=== PATIENT | male | born 1965 | race Caucasian/White ===

== ENCOUNTER 2017-01-04 23:21 | Emergency (ER) | payer MEDICARE ==
[2017-01-05 00:05] LABS: BASOPHIL 0.2 % (0-2); EOSINOPHIL 0.6 % (0-5); HCT 40.3 % (42.0-52.0); LYMPHOCYTE 37.4 % (15-48); MCH 31.5 pg (25.0-31.0); MCHC 34.7 g/dL (32.0-36.0); MCV 90.8 fL (78.0-100.0); MONOCYTE 9.6 % (0-12); MPV 8.1 fL (6.0-9.5); NEUTROPHIL 52.2 % (41-80); PLT 331 K/uL (150-400); RBC 4.44 M/uL (4.70-6.00); RDW 13.2 % (11.5-14.0)
[2017-01-05 00:34] LABS: LACTIC ACID 2.2 mmol/L (0.5-2.2)
[2017-01-05 00:39] LABS: ALBUMIN 4.1 g/dL (3.5-5.0); CREATININE 0.8 mg/dL (0.7-1.2); GLOBULIN (CALCULATION) 3.3 g/dL (2.2-4.2); POTASSIUM 3.4 mmol/L (3.5-5.1); TOTAL PROTEIN 7.4 g/dL (6.4-8.3)
[2017-01-05 00:40] LABS: BILIRUBIN NEGATIVE (NEGATIVE); BLOOD 2+ Ery/uL (NEGATIVE); CLARITY CLEAR (CLEAR); COLOR YELLOW (YELLOW); GLUCOSE (U) NORMAL (NORMAL); KETONE (U) 1+ (SMALL) mg/dL (NEGATIVE); LEUKOCYTES 3+ Leu/uL (NEGATIVE); NITRITE POSITIVE (NEGATIVE); PROTEIN NEGATIVE (NEGATIVE)
[2017-01-05 00:40] LABS: BILIRUBIN - TOTAL 0.3 mg/dL (0.1-1.0)
[2017-01-05 00:53] LABS: URINARY WBC 20-50
[2017-01-05 00:55] LABS: BACTERIA TRACE; SQUAMOUS EPITHELIAL CELLS RARE
== END 2017-01-05 03:28 | disposition home or self-care (01) ==
LOC: FER 23:21
PROVIDERS: Emergency Medicine Emergency Medical Services
DX: N30.00 Acute cystitis without hematuria (principal); K62.89 Other specified diseases of anus and rectum; K59.00 Constipation, unspecified; E86.0 Dehydration; F17.210 Nicotine dependence, cigarettes, uncomplicated; Z88.0 Allergy status to penicillin; Z98.890 Other specified postprocedural states
CPT/HCPCS: 36415; 80053; 81001; 83605; 85025; 87077; 87088; 87186; 87804; 87899; J1170; J1980; J2405; Q9967

== ENCOUNTER 2017-02-24 21:25 | Emergency (ER) | payer MEDICARE | END 2017-02-24 23:29 | disposition home or self-care (01) | LOC: FER 21:25 | DX: S20.212A Contusion of left front wall of thorax, initial encounter (principal); J44.9 Chronic obstructive pulmonary disease, unspecified; F17.210 Nicotine dependence, cigarettes, uncomplicated; Z85.048 Personal history of other malignant neoplasm of rectum, rectosigmoid junction, and anus; Z88.0 Allergy status to penicillin; Z98.890 Other specified postprocedural states; W51.XXXA Accidental striking against or bumped into by another person, initial encounter; Y92.009 Unspecified place in unspecified non-institutional (private) residence as the place of occurrence of the external cause | CPT/HCPCS: 71020; J1170 ==

== ENCOUNTER 2017-04-08 18:58 | Emergency (ER) | payer MEDICARE | END 2017-04-08 20:35 | disposition home or self-care (01) | LOC: FER 18:58 | DX: K62.89 Other specified diseases of anus and rectum (principal); F17.200 Nicotine dependence, unspecified, uncomplicated; Z88.0 Allergy status to penicillin; Z98.890 Other specified postprocedural states | CPT/HCPCS: J1170 ==

== ENCOUNTER 2021-01-21 14:20 | Emergency (ER) | payer MEDICARE ==
[~2021-01-21 14:20] MED LIST: FOLIC ACID1 MG PO; OXYCONTIN15 MG PO
[2021-01-21 15:15] LABS: BASOPHIL 0.4 % (0-2); EOSINOPHIL 0.5 % (0-5); HCT 42.8 % (42.0-52.0); HGB 14.8 g/dl (13.2-18.0); LYMPHOCYTE 20.7 % (15-48); MCH 32.5 pg (25.0-31.0); MCHC 34.6 g/dL (32.0-36.0); MCV 93.9 fL (78.0-100.0); MONOCYTE 8.9 % (0-12); MPV 8.5 fL (6.0-9.5); NEUTROPHIL 68.6 % (41-80); NRBC 0; PLT 279 K/uL (150-400); RBC 4.56 M/uL (4.70-6.00); RDW 13.2 % (11.5-14.0); WBC 7.9 K/uL (4.0-10.5)
[2021-01-21 15:27] LABS: ALBUMIN 3.3 g/dL (3.4-5.0); BILIRUBIN - TOTAL 0.9 mg/dL (0.2-1.0); CREATININE 0.74 mg/dL (0.67-1.17); GLOBULIN (CALCULATION) 4.1 g/dL; POTASSIUM 3.6 mmol/L (3.5-5.1); TOTAL PROTEIN 7.4 g/dL (6.4-8.2)
[2021-01-21] MEDS ORDERED: DICLOFENAC SODI75 MG PO (15:51)
== END 2021-01-21 16:30 | disposition home or self-care (01) ==
LOC: FER 14:20
PROVIDERS: Emergency Medicine
DX: M54.5 Low back pain (principal); K62.89 Other specified diseases of anus and rectum; F17.210 Nicotine dependence, cigarettes, uncomplicated; Z85.038 Personal history of other malignant neoplasm of large intestine; Z90.49 Acquired absence of other specified parts of digestive tract; Z88.0 Allergy status to penicillin
CPT/HCPCS: 36415; 80053; 85025; J1170; J1885; J2405; J2930

== ENCOUNTER 2021-01-23 15:13 | Emergency (ER) | payer MEDICARE ==
[~2021-01-23 15:13] MED LIST changes: +DICLOFENAC SODI75 MG PO
== END 2021-01-23 21:47 | disposition home or self-care (01) ==
LOC: FER 15:13
DX: M46.28 Osteomyelitis of vertebra, sacral and sacrococcygeal region (principal); F17.210 Nicotine dependence, cigarettes, uncomplicated; Z88.0 Allergy status to penicillin
CPT/HCPCS: 72131; 72192; J1100; J1170; J1885; J2405

== ENCOUNTER 2021-01-24 21:11 | Day surgery (SDCO) | payer MEDICARE ==
[2021-01-24 22:02] LABS: BASOPHIL 1.5 % (0-2); EOSINOPHIL 0 % (0-5); HCT 43.2 % (42.0-52.0); HGB 14.9 g/dl (13.2-18.0); LYMPHOCYTE 15.6 % (15-48); MCH 31.9 pg (25.0-31.0); MCHC 34.5 g/dL (32.0-36.0); MCV 92.5 fL (78.0-100.0); MONOCYTE 11.7 % (0-12); NEUTROPHIL 70.9 % (41-80); NRBC 0; PLT 253 K/uL (150-400); RBC 4.67 M/uL (4.70-6.00); RDW 13.4 % (11.5-14.0)
[2021-01-24 22:10] LABS: WBC 3.3 K/uL (4.0-10.5)
[2021-01-24 22:14] LABS: ALBUMIN 2.2 g/dL (3.4-5.0); BILIRUBIN - TOTAL 1.8 mg/dL (0.2-1.0); BUN/CREAT RATIO (CALC) 40.8 RATIO; CREATININE 0.98 mg/dL (0.67-1.17); GLOBULIN (CALCULATION) 4.5 g/dL; POTASSIUM 3.8 mmol/L (3.5-5.1); TOTAL PROTEIN 6.7 g/dL (6.4-8.2)
[2021-01-25] MEDS ORDERED: GABAPENTIN800 MG PO (00:39)
[2021-01-25] MEDS ORDERED: VICODIN 10/3251 EACH PO (00:40)
[2021-01-25 04:54] LABS: BILIRUBIN NEGATIVE (NEGATIVE); BLOOD 2+ Ery/uL (NEGATIVE); CLARITY CLEAR (CLEAR); COLOR YELLOW (YELLOW); GLUCOSE (U) NORMAL (NORMAL); LEUKOCYTES NEGATIVE Leu/uL (NEGATIVE); NITRITE POSITIVE (NEGATIVE); PROTEIN 1+ mg/dL (NEGATIVE); SPECIFIC GRAVITY >=1.030 (1.001-1.030); pH 5.5 (5.0-9.0)
[2021-01-25 05:01] LABS: BACTERIA 2+; URINARY RBC 20-50
[2021-01-25 05:02] LABS: AMORPHOUS URATES CRYSTALS TRACE; SQUAMOUS EPITHELIAL CELLS RARE
[2021-01-25 13:39] LABS: LACTIC ACID 6.8 mmol/L (0.4-1.9)
[2021-01-25 17:22] LABS: HCT 31.6 % (42.0-52.0); HGB 11.2 g/dl (13.2-18.0); MCH 32.5 pg (25.0-31.0); MCHC 35.4 g/dL (32.0-36.0); MCV 91.6 fL (78.0-100.0); MPV 9.7 fL (6.0-9.5); RBC 3.45 M/uL (4.70-6.00); RDW 13.6 % (11.5-14.0)
[2021-01-25 17:29] LABS: WBC 1.1 K/uL (4.0-10.5)
[2021-01-25 17:36] LABS: POTASSIUM 3.5 mmol/L (3.5-5.1)
== END 2021-01-25 18:15 | disposition other institution (70) ==
LOC: FER 21:11 → FMS 23:06 → FICU 01-25 14:29
PROVIDERS: Emergency Medicine; Hospitalist; ADMIT Internal Medicine
DX: A41.9 Sepsis, unspecified organism (principal); L03.116 Cellulitis of left lower limb; R65.21 Severe sepsis with septic shock; I95.9 Hypotension, unspecified; C18.9 Malignant neoplasm of colon, unspecified; C78.00 Secondary malignant neoplasm of unspecified lung; I10 Essential (primary) hypertension; M51.36 Other intervertebral disc degeneration, lumbar region; G25.81 Restless legs syndrome; M19.90 Unspecified osteoarthritis, unspecified site; F17.210 Nicotine dependence, cigarettes, uncomplicated; M48.07 Spinal stenosis, lumbosacral region; Z79.899 Other long term (current) drug therapy; Z88.0 Allergy status to penicillin; Z20.822 Contact with and (suspected) exposure to COVID-19
CPT/HCPCS: 36415; 71045; 72148; 73700; 80048; 80053; 81001; 82150; 82270; 83605; 83690; 84145; 85025; 87040; 93971; 94010; G0378; J1170; J1650; J1885; J2185; J2405; J2800; J3370; J7030; J7040; J7050; J7120; U0002